=== PATIENT | male | born 1965 ===

== ENCOUNTER 2025-08-21 06:17 | Day surgery (SDC) | payer BC, SELFPAY ==
[2025-08-21] VITALS (9 sets, daily range): BP systolic 131–152; BP diastolic 85–96; BMI 36.0
[2025-08-21] MEDS: NORMOSOL-R/PLASMALYTE-A 1000 IV (09:23)
[2025-08-21] MEDS: DILAUDID 0.25 MG IV (13:03)
[2025-08-21] MEDS: TYLENOL 650 MG PO (14:03)
== END 2025-08-21 14:25 | disposition home or self-care (01) ==
LOC: SDS 06:17
PROVIDERS: ATTENDING PHYSICIAN Otolaryngology
DX: H72.91 Unspecified perforation of tympanic membrane, right ear (principal)
CPT/HCPCS: 69631